=== PATIENT | male | born 1995 | race Caucasian/White ===

== ENCOUNTER 2018-04-06 01:34 | Emergency (ER) | payer BC ==
[2018-04-06 01:48] VITALS: BP 152/92
[2018-04-06] MEDS ORDERED: METHYLPREDNISOLONE INJ 125 MG/2 ML SDV IM ONE (02:00)
--- NOTE | 2018-04-06 02:03 | ER Document Report ---
HPI - HPI Patient complains to provider of: Poison man rash Pain Level: 3 Context: Patient is a 23-year-old male that comes to the emergency department for chief complaint of rash to his arms, neck, and slightly on the face. He has been cutting trees, the rash has developed over the past day. He has been taking Benadryl for the itching. He denies any other complaints including difficulty swallowing, breathing, facial swelling, etc. He takes no daily medications. Denies any medical history. Vaccinations up-to-date. Past Medical History - General Information source: Patient - Social History Smoking Status: Never Smoker Frequency of alcohol use: Occasional Drug Abuse: None Lives with: Family Family History: Reviewed & Not Pertinent - Medical History Medical History: Negative Surgical Hx: Negative - Immunizations Immunizations up to date: Yes Hx Diphtheria, Pertussis, Tetanus Vaccination: Yes Vertical Provider Document - CONSTITUTIONAL General Appearance: WD/WN, No Apparent Distress - INFECTION CONTROL TRAVEL OUTSIDE OF THE [place] IN LAST 30 DAYS: No - HEENT HEENT: Atraumatic, Normal ENT Exam - Clear airway, normal tongue, normal oropharyngeal exam, Normocephalic - NECK Neck: Normal Inspection - RESPIRATORY Respiratory: Breath Sounds Normal, No Respiratory Distress - CARDIOVASCULAR Cardiovascular: Regular Rate, Regular Rhythm - GI/ABDOMEN Gastrointestinal: Abdomen Soft, Abdomen Non-Tender - BACK Back: Normal Inspection - MUSCULOSKELETAL/EXTREMETIES Musculoskeletal/Extremeties: MAEW, FROM, Non-Tender - NEURO Level of Consciousness: Awake, Alert, Appropriate Motor/Sensory: No Motor Deficit, No Sensory Deficit - DERM Integumentary: Rash - Contact dermatitis with maculopapular rash over the forearms, front and back of the neck, minimally on the face. No pustules, induration, fluctuance, bulla, sloughing of skin. Course - Re-evaluation Re-evalutation: Patient with obvious contact dermatitis secondary to reported poison man, no additional concerning arise including no evidence of cellulitis, secondary infection. Treating with extended course of prednisone, given Solu-Medrol here , discussed expectations, follow-up, and return precautions. Patient states understanding and agreement. - Vital Signs Vital signs: Temp Pulse Resp BP Pulse Ox 97.3 F 76 16 152/92 H 100 04/06/18 01:46 04/06/18 01:46 04/06/18 01:46 04/06/18 01:46 04/06/18 01:46 Discharge - Discharge Clinical Impression: Poison man dermatitis Condition: Stable Disposition: HOME, SELF-CARE Additional Instructions: Your evaluation is consistent with dermatitis caused by poison man. Take prednisone taper as prescribed, you can take Zyrtec nonsedating antihistamine for itching or take Benadryl which is more sedating if needed. Follow-up with primary care. Return if you worsen including swelling of the throat, difficulty breathing, swelling of the face, developing infection ( spreading redness, discolored discharge, fever, etc.). Prescriptions: Prednisone 10 mg PO ASDIR PRN #74 tablet PRN Reason: Forms: Elevated Blood Pressure
== END 2018-04-06 03:00 | disposition home or self-care (01) ==
LOC: ER 01:34
DX: L23.7 Allergic contact dermatitis due to plants, except food (principal)
CPT/HCPCS: 99282; 96372; J2930